=== PATIENT | female | born 1990 | race African-American/Black ===

== ENCOUNTER 2016-06-10 20:40 | Inpatient (IN) | payer OTHER ==
[2016-06-10] MEDS ORDERED: STADOL IV PRN ×2 (20:46)
[2016-06-10] MEDS ORDERED: PEPCID PO PRN (20:46)
[2016-06-10] MEDS ORDERED: ZOFRAN IV PRN (20:46)
[2016-06-10] MEDS ORDERED: BRETHINE SUBQ PRN (20:46)
[2016-06-10] MEDS ORDERED: PEPCID IV PRN (20:46)
[2016-06-10] MEDS ORDERED: TYLENOL PO PRN (20:46)
[2016-06-10] MEDS ORDERED: KEFZOL 1 GM/D5W 50 ML IV PRN (20:46)
[2016-06-10] MEDS ORDERED: AMBIEN PO PRN (20:46)
[2016-06-10] MEDS ORDERED: SODIUM CHLORIDE 0.9% INJ PRN (20:49)
[2016-06-10] MEDS ORDERED: PHENERGAN IV PRN (20:49)
[2016-06-10] MEDS ORDERED: AMPICILLIN 2 GM/NS 100 ML IV ONE (22:00)
[2016-06-10] MEDS: LR 1,000 ML IV SCH (22:00)
[2016-06-10] MEDS ORDERED: CYTOTEC PO ONE (23:00)
[2016-06-11 00:05] LABS: MANUAL DIFF NEEDED? NO
[2016-06-11 00:08] LABS: BASO% 0.2 % (0.0-0.8); EOS# 0.08 X1000 (0.0-0.7); EOS% 0.7 % (0.0-10.0); HEMATOCRIT 33.9 % (37.0-47.0); HEMOGLOBIN 11.3 g/dL (12.0-16.0); IMM GRAN# 0.09 X1000 (0.0-0.04); IMM GRAN% 0.8 % (0.0-0.5); LYMPH# 2.62 X1000 (1.2-3.4); LYMPH% 22.7 % (20.5-51.1); MCH 28.5 PG (27-31); MCHC 33.3 g/dL (33-37); MCV 85.4 FL (81-99); MONO# 0.79 X1000 (0.11-0.59); MONO% 6.9 % (1.7-9.3); MPV 13.8 FL (7.4-10.4); NEUT% 68.7 % (42.2-75.2); PLT 196 X1000 (130-400); RBC 3.97 XMIL (4.2-5.4)
[2016-06-11 01:21] LABS: URINE SOURCE VOIDED
[2016-06-11 01:32] LABS: BILIRUBIN URINE NEGATIVE (NEGATIVE); BLOOD URINE NEGATIVE (NEGATIVE); CLARITY CLEAR (CLEAR); COLOR YELLOW; GLUCOSE URINE NEGATIVE (NEGATIVE); LEUKOCYTES URINE 2+ (NEGATIVE); NITRITE URINE NEGATIVE (NEGATIVE); PH URINE 6.5; PROTEIN URINE NEGATIVE (NEGATIVE); UROBILINOGEN URINE NORMAL
[2016-06-11] MEDS: AMPICILLIN 1 GM/NS 50 ML IV SCH ×2 (02:08→07:11)
[2016-06-11] MEDS ORDERED: CYTOTEC PO SCH (03:00)
[2016-06-11] MEDS: STADOL IV PRN ×2 (04:35→06:56)
[2016-06-11] MEDS: LR 1,000 ML IV SCH (06:52)
[2016-06-11] MEDS ORDERED: XYLOCAINE-MPF 1% 0 ML ONE (06:54)
[2016-06-11] MEDS ORDERED: PITOCIN 30 UNITS/LR 500 ML IV SCH (07:00)
[2016-06-11] MEDS ORDERED: FENTANYL-BUPIV-NS 2 MCG-0.1% 0 ML ONE (07:05)
[2016-06-11] MEDS ORDERED: MINERAL OIL ONE (07:07)
[2016-06-11] MEDS ORDERED: XYLOCAINE-MPF 1% ONE (07:07)
[2016-06-11] MEDS ORDERED: PITOCIN IM PRN (08:15)
[2016-06-11] MEDS ORDERED: HYDROXYZINE PO PRN (08:15)
[2016-06-11] MEDS ORDERED: BENADRYL PO PRN (08:15)
[2016-06-11] MEDS ORDERED: MINERAL OIL MISC PRN (08:15)
[2016-06-11] MEDS ORDERED: NORCO-5 PO PRN (08:15)
[2016-06-11] MEDS ORDERED: AMBIEN PO PRN (08:15)
[2016-06-11] MEDS ORDERED: HYDROXYZINE IM PRN (08:15)
[2016-06-11] MEDS ORDERED: PITOCIN 30 UNITS/LR 500 ML IV ONE (08:15)
[2016-06-11] MEDS ORDERED: BOOSTRIX VACCINE IM ONE (08:15)
[2016-06-11] MEDS ORDERED: XYLOCAINE-MPF 1% INJ PRN (08:15)
[2016-06-11] MEDS ORDERED: PITOCIN 20 UNITS/LR 1,000 ML IV SCH (08:15)
[2016-06-11] MEDS ORDERED: BENADRYL IV PRN (08:15)
[2016-06-11] MEDS ORDERED: M-M-R II VACCINE SUBQ ONE (08:15)
[2016-06-11] MEDS ORDERED: PERCOCET-5 PO PRN (08:15)
[2016-06-11] MEDS ORDERED: PERCOCET-10 PO PRN (08:15)
[2016-06-11] MEDS ORDERED: CYTOTEC PO PRN (08:15)
--- NOTE | 2016-06-11 09:47 | OPERATIVE NOTE ---
PROCEDURE DATE: 06/11/2016 DELIVERY PHYSICIAN: Austin Richards MD TYPE OF DELIVERY: Spontaneous controlled vaginal delivery. ANESTHESIA: IV sedation. FINDINGS: At 7:58 a.m., a 7 pound 2 ounce male infant was delivered in an occiput posterior presentation. Apgars were 9 at 1 minute and 10 at 5 minutes. SUMMARY: Jadyn Farias is a 26-year-old, 5, para 2-0-2-2 at term gestation. Her blood type is B positive. Rubella immune. Hepatitis B surface antigen, HIV are negative. Group B strep is positive. Ms Farias was brought into Labor and Delivery last night to begin induction of labor and also to receive group B strep prophylactic antibiotics. Cytotec was given and this morning, she was examined she was found to be 6 cm. She had spontaneous rupture of membranes. She continued to progress through labor rapidly and became complete. She began pushing and soon was . At that point, she was placed in the dorsal lithotomy position. A spontaneous controlled delivery occurred. Once the 's head was delivered, the oropharynx was bulb suctioned. The shoulders and body delivered without complications. The cord was clamped and cut. The was handed to the nurses for further care and evaluation. Cord blood was obtained. Placenta was spontaneously delivered. There were no cervical or vaginal lacerations and blood loss was estimated at 150 mL. The patient remained in the LDR recovering without difficulty.
[2016-06-11] MEDS: PERI MEDS (DERMOPLAST/NUPERCAINAL/TUCKS) MISC PRN (10:41)
[2016-06-11] MEDS: MOTRIN PO PRN ×2 (11:40→19:38)
[2016-06-11] MEDS: NORCO-10 PO PRN ×2 (11:41→19:39)
[2016-06-11] MEDS: PERICOLACE PO SCH (19:39)
[2016-06-12] MEDS: NORCO-10 PO PRN ×4 (03:48→20:24)
[2016-06-12] MEDS: MOTRIN PO PRN ×2 (03:48→16:37)
[2016-06-12 06:19] LABS: HEMATOCRIT 30.4 % (37.0-47.0); HEMOGLOBIN 9.7 g/dL (12.0-16.0); MCH 27.7 PG (27-31); MCHC 31.9 g/dL (33-37); MCV 86.9 FL (81-99); MPV 13.2 FL (7.4-10.4); RBC 3.5 XMIL (4.2-5.4)
[2016-06-12] MEDS: PERICOLACE PO SCH (20:24)
[2016-06-13] MEDS: MOTRIN PO PRN ×2 (02:07→10:14)
[2016-06-13] MEDS: NORCO-10 PO PRN ×2 (02:07→07:56)
[2016-06-13 08:32] VITALS: BP 128/64
[2016-06-13] MEDS ORDERED: FLUZONE QUAD 2016-2017 SYRINGE IM ONE (08:45)
[2016-06-13] MEDS: PERI MEDS (DERMOPLAST/NUPERCAINAL/TUCKS) MISC PRN (10:25)
== END 2016-06-13 10:55 | disposition home or self-care (01) | DRG 775 ==
LOC: P.LD 20:40 → P.WC 06-11 12:16
PROVIDERS: ADMIT Obstetrics & Gynecology; ATTEND Obstetrics & Gynecology
PROC: 10E0XZZ Delivery of Products of Conception, External Approach (ICD-10-PCS; principal; 2016-06-11)
DX: O99.824 Streptococcus B carrier state complicating childbirth (principal); Z23 Encounter for immunization; Z37.0 Single live birth; Z3A.39 39 weeks gestation of pregnancy
CPT/HCPCS: 36415; 59025; 81003; 85025; 85027; 86592; J0290; J0595; J2550; J2590; J7120; Q2038

== ENCOUNTER 2016-06-25 23:21 | Emergency (ER) | payer OTHER ==
[2016-06-25 23:30] VITALS: BP 140/84
[2016-06-25] MEDS ORDERED: SODIUM CHLORIDE 0.9% INJ ONE (23:43)
[2016-06-25] MEDS ORDERED: BENADRYL IV ONE (23:43)
[2016-06-25] MEDS ORDERED: COMPAZINE IV ONE (23:43)
[2016-06-25] MEDS ORDERED: PHENERGAN IV ONE (23:43)
--- NOTE | 2016-06-25 23:49 | PROVIDER DOCUMENTATION ---
HPI-Headache - General Chief Complaint: Headache Stated Complaint: LOPEZ Time Seen by Provider: 06/25/16 23:34 Source: patient Allergies/Adverse Reactions: Patient Allergies Allergy/AdvReac Type Severity Reaction Status Date / Time No Known Allergies Allergy Verified 06/25/16 23:32 Home Medications: Home Medication List Medication Instructions Recorded Confirmed Last Taken Type Hydrocodone/APAP 5 mg/325 mg 1 each PO Q3-4H PRN PRN #30 tablet 06/13/1606/25/16 Rx [Atlantic-5] Ibuprofen [Motrin] 800 mg PO Q8H PRN PRN #30 tablet 06/13/16 06/25/16 06/25/16 Rx - History of Present Illness-Headache Nature of Presenting Problem: 26 y/o AAF 14 days post , c/o headache for the last 2 weeks, on and off. Not related to position, not worsened by standing or better by laying. Has history of migraines, on the right side, radiating to the occiput. This is consistent with her typical migraines. States she is not sleeping due to the baby. Breast feeding. photophobia and nausea Review of Systems - Adult - REVIEW OF SYSTEMS - ADULT Constitutional: reports: no symptoms reported. denies: chills, fever, fatique Eyes: reports: no symptoms reported. denies: blurred vision, double vision, eye pain Ears, Nose, Mouth & Throat: reports: no symptoms reported. denies: ear pain, nose pain, throat pain Cardiovascular: reports: no symptoms reported. denies: chest pain, palpitations Respiratory: reports: no symptoms reported. denies: cough, shortness of breath Gastrointestinal: reports: see HPI, nausea. denies: abdominal pain, diarrhea, rectal bleeding, vomiting Genitourinary: reports: no symptoms reported Musculoskeletal: reports: no symptoms reported. denies: bone pain, back pain, muscle aches Integumentary: reports: no symptoms reported Neurological: reports: see HPI, headache/migraines. denies: ataxia, dizziness/ vertigo Psychiatric: reports: no symptoms reported Endocrine: reports: no symptoms reported Hematologic/Lymphatic: reports: no symptoms reported Allergic/Immunologic: reports: no symptoms reported All Other Systems: Reviewed and Negative Past History - Adult - PAST MEDICAL HISTORY-ADULT Review of Records: reports: Old Records Reviewed, Nursing Assessment Review, Medications Reviewed Major Childhood Illnesses: reports: denies history Cardiovascular: reports: denies history Respiratory: reports: asthma Gastrointestinal: reports: denies history Obstetrical/Gynecological: reports: ovarian cysts Genitourinary: reports: denies history Musculoskeletal: reports: denies history Neurological: reports: denies history Psychiatric: reports: anxiety Endocrine/Immune: reports: denies history Other Conditions: reports: denies history - PRIOR SURGERIES/PROCEDURES Surgical/Procedure History: reports: reviewed, not pertinent - IMMUNIZATION STATUS Childhood Immunizations: See Nurse Assessment Flu Vaccine: See Nurse Assessment - FAMILY HISTORY Family History: reviewed, not pertinent - SOCIAL HISTORY Smoking: less than 1 pack/day Substance Use: none/never Alcohol Use Frequency: never Physical Exam- Neurological - Physical Exam-Neuro Initial Vital Signs Reviewed: Yes General Appearance: appears well, alert, no apparent distress Eye Exam: bilateral eye: normal inspection, PERRL, EOMI HENMT: normocephalic/atraumatic, moist mucous membranes, normal ENT inspection Head Injury: no evidence of injury Neck: non-tender, full range of motion, supple, normal inspection Respiratory: chest non-tender, lungs clear, normal breath sounds, no pleuratic chest pain, no respiratory distress, no accessory muscle use. 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: normal hearing, normal speech, PERRL Motor/Sensory: no motor deficit, no sensory deficit, no pronator drift Neurologic: grossly normal, no motor/sensory deficits Integumentary: normal color, normal turgor, warm/dry Psych/Mental Status: normal mood/affect, normal thought content, normal thought process, oriented x 3 - Glascow Coma Scale Best Eye Response: (4) open spontaneously Best Verbal Response: (5) oriented Best Motor Response: (6) obeys commands Progress - PLAN OF CARE/RESULTS Progress/Plan/Lab Results: Vital Signs Temp Pulse Resp BP Pulse Ox 06/25/16 23:27 98.3 F 69 17 140/84 100 No Known Allergies Allergy (Verified 06/25/16 23:32) Hydrocodone/APAP 5 mg/325 mg [Atlantic-5] 1 each PO Q3-4H PRN PRN #30 tablet Ibuprofen [Motrin] 800 mg PO Q8H PRN PRN #30 tablet 06/13/16 Orders Category Date Time Status Saline Loc NOW Care 06/25/16 23:43 Active Diphenhydramine [Benadryl] Med 06/25/16 23:43 Discontinued 50 mg IV NOW ONE Prochlorperazine [Compazine] Med 06/25/16 23:43 Discontinued 10 mg IV NOW ONE Promethazine [Phenergan] Med 06/25/16 23:43 Discontinued 12.5 mg IV NOW ONE Sodium Chloride 0.9% Med 06/25/16 23:43 Discontinued 10 ml INJ NOW ONE Departure - Departure Time of Disposition Order: 23:48 DIAGNOSIS: Migraine Qualifiers: Migraine type: without aura Status migrainosus presence: without status migrainosus Intractability: not intractable Qualified Code(s): G43.009 - Migraine without aura, not intractable, without status migrainosus Disposition: HOME 01 Certified Medical Emergency: Emergent Condition: Stable Additional Instructions: Follow up with your primary care physician ED Follow Up Instructions: You have been treated by a care provider in the Emergency Department. These instructions are being provided to you so you can have an understanding of how to care for yourself upon discharge. Upon discharge from the Emergency Department, you are responsible for making arrangements for follow-up care by a physician of your choice. Take all prescribed medications as directed. Return to the Emergency Department immediately for any new or worsening symptoms. You may call the Physician Referral phone number at [phone] to obtain a list of Physicians who are taking new patients. Attestation - Physician/ FERNANDEZ Attestation Patient care was provided by Advanced Practice Provider:: Yes Advanced Practice Provider:: Shannon Shirley Advanced Practice Provider documentation review:: The Mid-level provider documentation, treatment plan and medical decision making was reviewed by the physician who agrees with all treatment and medical decision making by the MLP.
== END 2016-06-26 00:20 | disposition home or self-care (01) ==
LOC: ED 23:21
DX: O90.89 Other complications of the puerperium, not elsewhere classified (principal); G43.009 Migraine without aura, not intractable, without status migrainosus; R51 Headache; H53.149 Visual discomfort, unspecified; R11.0 Nausea; O99.335 Smoking (tobacco) complicating the puerperium; F17.210 Nicotine dependence, cigarettes, uncomplicated; Z87.42 Personal history of other diseases of the female genital tract
CPT/HCPCS: J0780; J1200; J2550